=== PATIENT | male | born 1970 | race Caucasian/White ===

== ENCOUNTER → 2016-10-10 | Outpatient (CLI) | payer OTHER | LOC: FIMAGING 09:42 | PROVIDERS: ATTEND Orthopaedic Surgery | PROC: 0H9LXZZ Drainage of Left Lower Leg Skin, External Approach (ICD-10-PCS; principal; 2016-10-10) | DX: T87.44 Infection of amputation stump, left lower extremity (principal); Z89.512 Acquired absence of left leg below knee ==

== ENCOUNTER → 2016-10-13 | Outpatient (CLI) | payer OTHER ==
[~2016-10-13] MED LIST: GADOBUTROL 10 ML VIAL IVP ONE
== END ==
LOC: FIMAGING 17:07
PROVIDERS: ATTEND Internal Medicine Infectious Disease
DX: T87.89 Other complications of amputation stump (principal); Z89.512 Acquired absence of left leg below knee
CPT/HCPCS: A9585